=== PATIENT | male | born 1945 | race Caucasian/White ===

== ENCOUNTER 2024-03-14 14:00 | Outpatient (RCR) | payer OTHER, SELFPAY | END 2024-05-11 12:30 | disposition home or self-care (01) | LOC: HO.WCC 14:00 | PROVIDERS: PCP Internal Medicine; Visit Provider Physician Assistant | DX: E11.622 Type 2 diabetes mellitus with other skin ulcer (principal); L89.152 Pressure ulcer of sacral region, stage 2; L97.822 Non-pressure chronic ulcer of other part of left lower leg with fat layer exposed; E11.40 Type 2 diabetes mellitus with diabetic neuropathy, unspecified; I11.0 Hypertensive heart disease with heart failure; I50.9 Heart failure, unspecified; I25.10 Atherosclerotic heart disease of native coronary artery without angina pectoris; I25.2 Old myocardial infarction; Z87.891 Personal history of nicotine dependence | CPT/HCPCS: 11042; 97597; 99212 ==